=== PATIENT | female | born 1985 | race Caucasian/White ===

== ENCOUNTER 2018-11-17 14:28 | Day surgery (SDC) | payer OTHER ==
[2018-11-17] MEDS ORDERED: FENTAnyl 50 MCG/ML VIAL IV ×2 (16:30)
[2018-11-17] MEDS ORDERED: OXYCODONE/ACETAMINOPHEN (5/325) TAB PO (16:30)
[2018-11-17] MEDS ORDERED: LIDOCAINE 2% (SDV) 5 ML INJ (17:00)
[2018-11-17] MEDS ORDERED: ROCURONIUM 50 MG INJ (17:00)
[2018-11-17] MEDS ORDERED: PROPOFOL 200 MG INJ (17:00)
[2018-11-17] MEDS ORDERED: FENTAnyl 50 MCG/ML VIAL (17:05)
[2018-11-17] MEDS ORDERED: ONDANSETRON 4 MG INJ (17:10)
[2018-11-17] MEDS ORDERED: DEXAMETHASONE 4 MG/ML 5 ML INJ (17:10)
[2018-11-17] MEDS ORDERED: CEFAZOLIN 1 GM INJ (17:10)
[2018-11-17] MEDS ORDERED: LABETALOL HCL 20MG INJ (17:12)
[2018-11-17] MEDS ORDERED: MIDAZOLAM 1 MG/ML 2 ML INJ (17:15)
[2018-11-17] MEDS ORDERED: HYDROCODONE/APAP (5/325) TAB PO (17:30)
[2018-11-17] MEDS ORDERED: SUGAMMADEX SODIUM 200 MG/2 ML VIAL IV (17:33)
[2018-11-17] MEDS: ONDANSETRON 4 MG INJ IV (18:03)
[2018-11-17] MEDS: FENTAnyl 50 MCG/ML VIAL IV ×2 (18:03→18:15)
== END 2018-11-17 18:55 | disposition home or self-care (01) ==
LOC: SDS 14:28
DX: J35.01 Chronic tonsillitis (principal); E66.01 Morbid (severe) obesity due to excess calories; Z68.41 Body mass index [BMI] 40.0-44.9, adult
CPT/HCPCS: 42826; 88302